=== PATIENT | male | born 1970 | race Caucasian/White ===

== ENCOUNTER → 2019-06-12 17:20 | Outpatient (BNVA) | payer SELFPAY | PROVIDERS: Visit Provider Nurse Practitioner Family | DX: R68.89 Other general symptoms and signs (principal); J04.0 Acute laryngitis | CPT/HCPCS: 87400; 87635 ==

== ENCOUNTER 2022-09-19 13:24 | Outpatient (CLI) | payer SELFPAY ==
[2022-09-19 14:23] LABS: Basophils % 0.6 %; Eosinophils # 0.1 10^3/uL (0.0-0.8); Eosinophils % 0.8 %; Hematocrit 44.1 % (42.0-52.0); Hemoglobin 14.7 g/dL (11.7-16.6); Lymphocytes # 2.2 10^3/uL (0.8-4.8); Mean Corpuscular HGB Conc 33.3 g/dL (30.0-36.0); Mean Corpuscular Hemoglobin 31.7 pg (28.0-34.0); Monocytes # 0.3 10^3/uL (0.2-0.9); Monocytes % 4.8 %; Neutrophils # 4.42 10^3/uL (1.8-7.7); Neutrophils % 62.7 %; Nucleated Red Blood Cells % 0 %; Platelet Count 176 10^3/cmm (130-400); Red Blood Count 4.64 10^6/uL (4.1-5.3); Red Cell Distribution Width 12.1 % (12.1-15.1); White Blood Count 7.1 10^3/uL (4.0-10.0)
[2022-09-19 14:58] LABS: Alanine Aminotransferase 19 U/L (0-41); Alkaline Phosphatase 59 U/L (40-130); Anion Gap 13.3 (5-19); Aspartate Amino Transferase 15 U/L (0-40); Blood Urea Nitrogen 10 mg/dL (6-20); Calcium 9.2 mg/dL (8.5-10.5); Carbon Dioxide 29 mmol/L (22-29); Chloride 101 mmol/L (98-107); Cholesterol 142 mg/dL (0-200); Free T4 Free Thyroxine 1.11 ng/dL (0.82-1.77); Globulin 2.4 g/dL (1.3-4.6); Glomerular Filtration Rate 88.6 mL/min (90-130); Glucose 76 mg/dL (65-115); HDL Cholesterol 49 mg/dL (60-100); LDL Cholesterol Calculated 74 mg/dL (50-129); LDL HDL Ratio 1.51 RATIO (0.00-3.22); Osmolality Calculated 286 mOsm/kg (285-295); Potassium 4.3 mmol/L (3.5-5.1); Sodium 139 mmol/L (136-145); Thyroid Stimulating Hormone 1.89 uIU/mL (0.27-4.20); Total Bilirubin 1.2 mg/dL (0.15-1.2); Total Protein 6.4 g/dL (6.6-8.7); Triglycerides 96 mg/dL (0-150)
== END 2022-09-19 13:25 | disposition home or self-care (01) ==
PROVIDERS: PCP Family Medicine; Visit Provider Family Medicine
DX: K92.2 Gastrointestinal hemorrhage, unspecified (principal)
CPT/HCPCS: 36415; 80053; 80061; 84439; 84443; 85025